=== PATIENT | male | born 1965 | race Hispanic/Latino ===

== ENCOUNTER 2023-04-21 10:26 | Emergency (ER) | payer OTHER, SELFPAY ==
[2023-04-21 10:40] VITALS: BP 118/63; PULSE 73; RESP 15; TEMP 36.1; O2SAT 97
--- NOTE | 2023-04-21 10:50 | DI.RAD.S_ITS ---
PROCEDURE: XR KNEE LT 3V INDICATIONS: large rock fell onto pts leg TECHNIQUE: 3 views of the knee were acquired. COMPARISON: [facility], CR, XR FEMUR LT 1V, 04/21/2023, 10:58. FINDINGS: Bones: No fractures or dislocations. No suspicious bony lesions. Soft tissues: No joint effusion. No suspicious soft tissue calcifications. IMPRESSION: No acute osseous abnormality. If clinical symptoms persist or clinical suspicion for pathology is high, a repeat examination in 7-10 days, or advanced imaging such as CT or MRI is suggested for further evaluation. Dictated by: Layla Simms M.D. on 04/21/2023 at 11:22 Approved by: Layla Simms M.D. on 04/21/2023 at 11:26
--- NOTE | 2023-04-21 10:50 | DI.RAD.S_ITS ---
PROCEDURE: XR FEMUR LT 1V INDICATIONS: large rock fell onto pts leg TECHNIQUE: 2 views of the femur were acquired. COMPARISON: None. FINDINGS: Bones: No fractures or dislocations. No suspicious bony lesions. Soft tissues: No suspicious soft tissue calcifications or masses. IMPRESSION: No acute osseous abnormalities. Dictated by: Layla Simms M.D. on 04/21/2023 at 11:21 Approved by: Layla Simms M.D. on 04/21/2023 at 11:21
[2023-04-21] MEDS: ACETAMINOPHEN 325 MG TABLET 650 MG PO (11:41)
[2023-04-21] MEDS: LIDOCAINE PATCH 1 EACH ADH..PATCH TOP (11:41)
[2023-04-21] MEDS: TET,DIPH,PERTUSS(ACELL),VAC/PF 0.5 ML SYRINGE IM (11:44)
[2023-04-21 11:47] VITALS: BMI 31.3
--- NOTE | 2023-04-21 11:49 | PC.NURSE ---
Wound was cleaned by [employer] crew and she also applied antibiotic and guaze dresing.
--- NOTE | 2023-04-21 12:14 | ED.LOWEXIN ---
HPI - Extremity Injury (Lower) <DEMETRICE Stahl - Last Filed: 04/21/23 12:18> General Chief Complaint: Extremity Injury, Lower Stated Complaint: rocks fell on left leg at work Time Seen by Provider: 04/21/23 10:59 Source: patient Mode of arrival: Wheelchair History of Present Illness HPI Narrative: This is a 58-year-old gentleman who presents to the emergency department from the work site that had a work related injury when a rock from a truck fell out onto his left upper leg. He has a contusion, abrasion, states it is painful to bear weight but he is ambulatory with pain. He is not anticoagulated, denies any numbness, tingling, other injury, did not get hit in the head, does not remember when his last tetanus was, there is no bleeding, there is small hematoma and tenderness to palpation. Related Data Allergies Allergy/AdvReac Type Severity Reaction Status Date / Time No Known Drug Allergies Allergy Verified 04/21/23 10:36 Review of Systems <DEMETRICE Stahl - Last Filed: 04/21/23 12:18> Review of Systems ROS Unobtainable: All systems reviewed & are unremarkable except as noted in HPI and below Exam <DEMETRICE Stahl - Last Filed: 04/21/23 12:18> Narrative Exam Narrative: Reviewed vitals signs and nursing notes. General: Pleasant, sitting upright, in no acute distress, well groomed, afebrile CV: regular rate and rhythm, warm extremities Respiratory: normal work of breathing, without tachypnea or hypoxia. MSK: moves all extremities, no weakness, normal tone, ambulatory without deficit complains of pain to the left lateral leg, there is a contusion, abrasion, there is no fluctuance, no patellar tendon tenderness, negative Lito's, full range of motion and sensation without deficit. Skin: brisk capillary refill, without rash, small abrasion without bleeding to the left lateral leg Neuro: clear speech and normal cognition, A&O x3, GCS 15, no focal motor or sensation deficits Initial Vital Signs Initial Vital Signs: Vital Signs Temperature 97.0 F L 04/21/23 10:40 Pulse Rate 73 04/21/23 10:40 Respiratory Rate 15 04/21/23 10:40 Blood Pressure 118/63 04/21/23 10:40 Pulse Oximetry 97 04/21/23 10:40 Oxygen Delivery Method Room Air 04/21/23 10:40 <Cam Campbell DO - Last Filed: 04/22/23 07:12> Initial Vital Signs Initial Vital Signs: Vital Signs Temperature 97.0 F L 04/21/23 10:40 Pulse Rate 73 04/21/23 10:40 Respiratory Rate 15 04/21/23 10:40 Blood Pressure 118/63 04/21/23 10:40 Pulse Oximetry 97 04/21/23 10:40 Oxygen Delivery Method Room Air 04/21/23 10:40 Course <JORGE StahlP - Last Filed: 04/21/23 12:18> Orders Ordered: Discontinued Medications Acetaminophen (Acetaminophen 325 Mg Tablet) 650 mg PO NOW ONE Stop: 04/21/23 11:27 Last Admin: 04/21/23 11:41 Dose: 650 mg Documented By: TONY Diphtheria/Tetanus/Acell Pertussis (Tet,Diph,Pertuss(Acell),Vac/Pf 0.5 Ml Syringe) 0.5 ml IM .ONCE ONE Stop: 04/21/23 11:43 Last Admin: 04/21/23 11:44 Dose: 0.5 ml Documented By: TONY Lidocaine (Lidocaine Patch 1 Each Adh..Patch) 1 each TOP NOW ONE Stop: 04/21/23 11:28 Last Admin: 04/21/23 11:41 Dose: 1 each Documented By: TONY Tetanus/Diphtheria Toxoids (Tetanus Diphtheria Toxoids 0.5 Ml Vial) 0.5 ml IM .ONCE ONE Stop: 04/21/23 11:27 Last Admin: 04/21/23 11:44 Dose: Not Given Documented By: TONY Vital Signs Vital signs: Vital Signs - 8 hr 04/21/23 10:40 Temperature 97.0 F L Pulse Rate 73 Respiratory Rate 15 Blood Pressure 118/63 Pulse Oximetry 97 Oxygen Delivery Method Room Air <Cam Campbell DO - Last Filed: 04/22/23 07:12> Orders Ordered: Discontinued Medications Acetaminophen (Acetaminophen 325 Mg Tablet) 650 mg PO NOW ONE Stop: 04/21/23 11:27 Last Admin: 04/21/23 11:41 Dose: 650 mg Documented By: TONY Diphtheria/Tetanus/Acell Pertussis (Tet,Diph,Pertuss(Acell),Vac/Pf 0.5 Ml Syringe) 0.5 ml IM .ONCE ONE Stop: 04/21/23 11:43 Last Admin: 04/21/23 11:44 Dose: 0.5 ml Documented By: TONY Lidocaine (Lidocaine Patch 1 Each Adh..Patch) 1 each TOP NOW ONE Stop: 04/21/23 11:28 Last Admin: 04/21/23 11:41 Dose: 1 each Documented By: TONY Tetanus/Diphtheria Toxoids (Tetanus Diphtheria Toxoids 0.5 Ml Vial) 0.5 ml IM .ONCE ONE Stop: 04/21/23 11:27 Last Admin: 04/21/23 11:44 Dose: Not Given Documented By: TONY Vital Signs Vital signs: Vital Signs - 8 hr 04/21/23 10:40 Temperature 97.0 F L Pulse Rate 73 Respiratory Rate 15 Blood Pressure 118/63 Pulse Oximetry 97 Oxygen Delivery Method Room Air MDM - Extremity Injury (Lower) <Layla Flower [facility] - Last Filed: 04/21/23 12:18> Imaging Data Extremity x-ray #1: Radiologist's Impression: PROCEDURE:? XR KNEE LT 3V ? INDICATIONS:? large rock fell onto pts leg ? TECHNIQUE:? 3 views of the knee were acquired.? ? COMPARISON:? [facility], , XR FEMUR LT 1V, 04/21/2023, 10:58. ? FINDINGS:? ? Bones:? No fractures or dislocations.? No suspicious bony lesions.? ? Soft tissues:? No joint effusion.? No suspicious soft tissue calcifications.? ? ? IMPRESSION:? No acute osseous abnormality.? If clinical symptoms persist or clinical suspicion for pathology is high, a repeat examination in 7-10 days, or advanced imaging such as CT or MRI is suggested for further evaluation. ? Dictated by: Layla Simms M.D. on 04/21/2023 at 11:22 ? ? Approved by: Layla Simms M.D. on 04/21/2023 at 11:26 ? Extremity x-ray #2: Radiologist's Impression: PROCEDURE:? XR FEMUR LT 1V ? INDICATIONS:? large rock fell onto pts leg ? TECHNIQUE:? 2 views of the femur were acquired.? ? COMPARISON:? None. ? FINDINGS:? ? Bones:? No fractures or dislocations.? No suspicious bony lesions.? ? Soft tissues:? No suspicious soft tissue calcifications or masses.? ? IMPRESSION:? No acute osseous abnormalities. ? ? Dictated by: Layla Simms M.D. on 04/21/2023 at 11:21 ? ? Approved by: Layla Simms M.D. on 04/21/2023 at 11:21 ? 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 My interpretation of imaging: X-ray of the left femur and knee are negative for acute abnormality, knee effusion or osseous abnormality Course of care: [id number], he was given 5 days off of work, has soft tissue tenderness to palpation without fluctuance, range of motion or sensation deficit, he is ambulatory and only complains of pain. Was treated with Tylenol, tetanus vaccination was updated. Social considerations that may affect disposition: none Questions are addressed and there is agreement with the plan and for follow-up. I consulted with the ED attending physician Dr. Campbell as needed for higher level of care considerations and they were available for discussion and recommendations regarding plan of care and diagnostic testing. Patient is appropriate for outpatient management. Discharge Plan Departure Patient Disposition: Home Clinical Impression: Work related injury Contusion Qualifiers: Encounter type: initial encounter Contusion area: thigh Laterality: left Qualified Code(s): S70.12XA - Contusion of left thigh, initial encounter Instructions: Contusion Activity Restrictions/Additional Instructions: *You have been diagnosed with injury to your leg. There are no broken bones, this may take 1 week or 2 weeks to get better. Please use Tylenol every 6 hours as needed for pain and ice packs as needed. Please use a cane or something to walk if it is too painful to bear weight. I hope you feel better soon. Please take the next fiber off of work so that you can heal. Please schedule an appointment for [facility] if you are having worsening pain and difficulty walking. [id number]. I hope you have a good few days off of work and happy holiday. *What to do: *Please continue to take your regular medications as directed. [ ] New medication prescriptions sent to your pharmacy: [ ] [ ] New medication written as a paper prescription [x ] No new medications given *Please call and schedule follow up with your primary care provider in 2-3 days, at least for an update. Let them know you were seen in the Emergency Department for the above problem. We will electronically transmit a record of today's note if your PCP or specialist is in our system. *If you do not have a primary care provider please contact [phone] to establish care with one of the [facility] primary care providers. *Return to the Emergency Department for worsening symptoms, inability to keep liquids down, fever greater than 101F, chills, or other concerning symptom. Referrals: [facility] [Provider Group] Miscellaneous,[facility] [Primary Care Provider] - Stand Alone Forms: Patient Portal/API, Work Release Note <Cam Campbell DO - Last Filed: 04/22/23 07:12> Cosign ED Attending Cosaaronature Attestation: I was immediately available in the department for consultation. This documentation has been reviewed and I agree with assessment and plan. Supervised by Cam Campbell DO
== END 2023-04-21 11:52 | disposition home or self-care (01) ==
PROVIDERS: Emergency Provider Nurse Practitioner Critical Care Medicine
DX: S70.12XA Contusion of left thigh, initial encounter (principal); X58.XXXA Exposure to other specified factors, initial encounter; Z23 Encounter for immunization; Y99.0 Civilian activity done for income or pay
CPT/HCPCS: 73552; 73562; 90471; 99283; 90715